=== PATIENT | female | born 1955 | race Caucasian/White ===

== ENCOUNTER 2016-10-10 17:38 | Emergency (ER) | payer OTHER ==
[~2016-10-10] VITALS: Ht 154.9 cm; Wt 68.0 kg
[~2016-10-10 17:38] MED LIST: PERCOCET 325 MG1 TA7 PO; VICODIN 5/500 505 MG PO; WELLBUTRIN; ZOLOFT; ZOLOFT50 MG PO
[2016-10-10] MEDS ORDERED: ZITHROMAX250 MG PO (21:03)
[2016-10-10] MEDS ORDERED: MEDROL DOSEPAK4 MG PO (21:03)
== END 2016-10-10 21:15 | disposition home or self-care (01) ==
LOC: ED 17:38
DX: J40 Bronchitis, not specified as acute or chronic (principal); V49.9XXA Car occupant (driver) (passenger) injured in unspecified traffic accident, initial encounter; Y93.89 Activity, other specified; Y92.413 State road as the place of occurrence of the external cause; Y99.9 Unspecified external cause status

== ENCOUNTER 2019-11-11 16:40 | Emergency (ER) | payer OTHER ==
[~2019-11-11] VITALS: Ht 154.9 cm; Wt 65.8 kg
[~2019-11-11 16:40] MED LIST changes: +MEDROL DOSEPAK4 MG PO; +ZITHROMAX250 MG PO
[2019-11-11] MEDS ORDERED: NYST SUSP PO (17:20)
== END 2019-11-11 19:00 | disposition home or self-care (01) ==
LOC: ED 16:40
DX: S16.1XXA Strain of muscle, fascia and tendon at neck level, initial encounter (principal); S09.90XA Unspecified injury of head, initial encounter; X58.XXXA Exposure to other specified factors, initial encounter; Y93.89 Activity, other specified; Y92.89 Other specified places as the place of occurrence of the external cause; Y99.8 Other external cause status

== ENCOUNTER 2020-07-03 19:04 | Emergency (ER) | payer OTHER ==
[~2020-07-03] VITALS: Wt 53.1 kg
[~2020-07-03 19:04] MED LIST changes: +NYST SUSP PO
[2020-07-03 19:53] LABS: BASO % 0.4 % (0.0-1.0); EOS # 0.2 10*3/uL (0.0-0.4); EOS % 3.6 % (1.0-4.0); HEMATOCRIT 39.1 % (37.0-47.0); LYMPH # 1.5 10*3/uL (1.3-4.4); LYMPH % 31.4 % (27.0-41.0); MEAN CELL VOLUME 104.5 fl (81.0-99.0); MEAN CORPUSCULAR HGB 34.2 pg (27.0-31.0); MEAN CORPUSCULAR HGB CONC 32.7 g/dl (33.0-37.0); MEAN PLATELET VOLUME 10.2 fl (9.6-12.3); MONO # 0.4 10*3/uL (0.1-1.0); MONO % 9.1 % (3.0-9.0); NEUT # 2.6 10*3/uL (2.3-7.9); NEUT % 55.1 % (47.0-73.0); PLATELET COUNT AUTOMATED 199 10*3/uL (130-400); RED BLOOD COUNT 3.74 10*6/uL (4.10-5.10); RED CELL DISTRI WIDTH 12.3 % (0-14.5); WHITE BLOOD COUNT 4.7 10*3/uL (4.8-10.8)
[2020-07-03 20:08] LABS: ACT PARTIAL THROMBO TIME 25.6 SECONDS (20.0-32.1)
[2020-07-03 20:09] LABS: ALBUMIN 3.9 gm/dl (3.1-4.5); ALKALINE PHOSPHATASE 64 U/L (45-117); BUN 16 mg/dl (7-24); CHLORIDE 108 mmol/L (98-107); CREATININE 0.79 mg/dL (0.55-1.02); POTASSIUM 3.6 mmol/L (3.5-5.1); SGOT/AST 15 IU/L (3-35); SGPT/ALT 19 U/L (12-78); SODIUM 142 mmol/L (136-145)
[2020-07-03 20:10] LABS: TROPONIN I < 0.015 ng/ml (<0.045)
[2020-07-03 22:28] VITALS: BP 95/43
== END 2020-07-04 00:36 | disposition short-term general hospital (02) ==
LOC: ED 19:04
PROVIDERS: Emergency Medicine Emergency Medical Services
DX: C13.9 Malignant neoplasm of hypopharynx, unspecified (principal); Z79.899 Other long term (current) drug therapy